=== PATIENT | male | born 1980 | race African-American/Black ===

== ENCOUNTER 2021-02-03 14:44 | Emergency (ER) | payer OTHER ==
[~2021-02-03] VITALS: Ht 177.8 cm; Wt 95.0 kg
[2021-02-03] MEDS ORDERED: MOTRIN800 MG PO (16:16)
[2021-02-03 16:34] VITALS: BP 140/87
== END 2021-02-03 16:34 | disposition home or self-care (01) ==
LOC: ED 14:44
DX: S83.92XA Sprain of unspecified site of left knee, initial encounter (principal); X50.0XXA Overexertion from strenuous movement or load, initial encounter; Y93.89 Activity, other specified; Y92.009 Unspecified place in unspecified non-institutional (private) residence as the place of occurrence of the external cause
CPT/HCPCS: L1830

== ENCOUNTER 2022-01-30 16:49 | Emergency (ER) | payer MEDICAID ==
[~2022-01-30] VITALS: Ht 177.8 cm; Wt 98.1 kg
[~2022-01-30 16:49] MED LIST: MOTRIN800 MG PO
[2022-01-30 17:09] VITALS: BP 156/134
[2022-01-30 17:15] VITALS: BP 159/101
== END 2022-01-30 18:20 | disposition home or self-care (01) ==
LOC: ED 16:49
DX: S63.91XA Sprain of unspecified part of right wrist and hand, initial encounter (principal); W22.09XA Striking against other stationary object, initial encounter

== ENCOUNTER 2024-08-26 09:17 | Emergency (ER) | payer SELFPAY ==
[2024-08-26] VITALS (14 sets, daily range): BP systolic 161–193; BP diastolic 103–130
[~2024-08-26] VITALS: Ht 177.8 cm; Wt 86.0 kg
[2024-08-26] MEDS ORDERED: LIDOcaine HCl 1% (Local Anesth.) 20 ML VIAL STI STA (09:42)
[2024-08-26] MEDS ORDERED: POVIDONE IODINE 0.5 OZ/BTL TOP ONE (09:45)
[2024-08-26] MEDS ORDERED: NEOMYCIN-BACITRACIN-POLYMYXIN 0.5 GM/PAK PAK TOP ONE (09:45)
[2024-08-26] MEDS ORDERED: SODIUM CHLORIDE 1,000 ML BTL IR ONE (09:45)
[2024-08-26] MEDS ORDERED: Diph, Acellular Pertussis, Tet 0.5 ML/VIAL (Tdap) SDV IM ONE (09:45)
[2024-08-26] MEDS ORDERED: BACITRACIN3.5 GM TOP ×2 (10:19→12:32)
[2024-08-26] MEDS ORDERED: CEPHALEXIN500 M1 PO ×2 (10:19→12:32)
[2024-08-26] MEDS ORDERED: NORVASC5 M1 PO ×2 (10:20→12:32)
[2024-08-26] MEDS ORDERED: cloNIDine HCL 0.1 MG/TAB PO ONE (10:40)
[2024-08-26] MEDS ORDERED: amLODIPine BESYLATE 5 MG/TAB PO ONE (11:05)
== END 2024-08-26 12:35 | disposition home or self-care (01) | DRG 605 ==
LOC: ED 09:17
PROC: 0HQLXZZ Repair Left Lower Leg Skin, External Approach (ICD-10-PCS; principal; 2024-08-26)
DX: S81.812A Laceration without foreign body, left lower leg, initial encounter (principal); I10 Essential (primary) hypertension; W20.8XXA Other cause of strike by thrown, projected or falling object, initial encounter; Y93.89 Activity, other specified; Y92.009 Unspecified place in unspecified non-institutional (private) residence as the place of occurrence of the external cause